=== PATIENT | female | born 1945 | race Caucasian/White ===

== ENCOUNTER → 2018-04-28 | Outpatient (CLI) | payer MEDICARE ==
--- NOTE | 2018-04-28 18:23 | US ---
EXAMINATION TYPE: US abdomen complete DATE OF EXAM: 04/28/2018 COMPARISON: NONE CLINICAL HISTORY: R10.11 right upper quadrant pain. EXAM MEASUREMENTS: Liver Length: 12.0 cm Gallbladder Wall: 0.2 cm CBD: 0.3 cm Spleen: 9.6 cm Right Kidney: 12.0 x 4.6 x 4.3 cm Left Kidney: 9.7 x 4.7 x 4.5 cm Patient of large body habitus, technically difficult and somewhat limited study. Pancreas: partially obscured by bowel gas, portions visualized wnl Liver: Increased attenuation Gallbladder: wnl Evidence for sonographic Medina's sign: no CBD: wnl Spleen: wnl Right Kidney: cyst seen measuring 1.3 x 1.2 x 1.2cm, measures large than left Left Kidney: Inferior pole obscured by bowel gas Upper IVC: wnl Abd Aorta: bifurcation obscured by bowel gas, otherwise wnl IMPRESSION: No significant abnormality. Simple small right renal cortical cyst.
== END | disposition home or self-care (01) ==
LOC: RADUSMAIN 17:08
PROVIDERS: ATTEND Internal Medicine
DX: N28.1 Cyst of kidney, acquired (principal)
CPT/HCPCS: 76700

== ENCOUNTER → 2018-05-22 | Outpatient (CLI) | payer MEDICARE ==
--- NOTE | 2018-05-23 11:43 | CT ---
EXAMINATION TYPE: CT abdomen w con DATE OF EXAM: 05/22/2018 HISTORY: RUQ and flank pain CT DLP: 1338mGycm Automated Exposure Control for Dose Reduction was Utilized. CONTRAST: CT scan of the abdomen is performed with IV Contrast, patient injected with 80 mL of Isovue 300. COMPARISON: Complete abdominal ultrasound April 28, 2018 FINDINGS: LUNG BASES: Dependent atelectasis in both bases is present. There is additional patchy bibasilar line ar scarring and/or atelectasis seen. LIVER/GB: No intraluminal CT dense gallstones or surrounding inflammatory change around gallbladder i s identified. PANCREAS: No significant abnormality is seen. SPLEEN: No significant abnormality is seen. ADRENALS: No significant abnormality is seen. KIDNEYS: Anteriorly upper pole level right kidney there is 1.3 cm rounded low dense lesion felt to re flect simple cysts seen best delayed axial series 7 image 32. This correlates with recent ultrasound. Symmetric cortical medullary uptake and excretion from both kidneys is seen without hydronephrosis i dentified bilaterally. BOWEL: The oral contrast only reaches proximal ileal level in the lower abdomen making evaluation of distal bowel suboptimal. There is no suspicious small or large bowel dilatation. Mild wall thickening transverse and left colon is presumed product of poor distention. LYMPH NODES: No greater than 1cm abdominal lymph nodes are appreciated. OSSEOUS STRUCTURES: Mild to moderate multilevel spurring in the thoracolumbar spine is present. There is facet arthropathy in the lower lumbar levels seen. OTHER: There is mild vascular calcification of aorta extending into branch vessels. IMPRESSION: No significant acute finding is seen to account for patient's clinical symptoms of right upper quadrant and flank pain.
== END | disposition home or self-care (01) ==
LOC: RADCTMAIN 14:57
PROVIDERS: ATTEND Internal Medicine
DX: R10.11 Right upper quadrant pain (principal)
CPT/HCPCS: 82565; 84520; 74160; 36415; Q9967

== ENCOUNTER → 2018-10-04 | Outpatient (CLI) | payer MEDICARE ==
--- NOTE | 2018-10-04 08:51 | US ---
EXAMINATION TYPE: US extremity nonvasc complt RT DATE OF EXAM: 10/04/2018 COMPARISON: NONE CLINICAL HISTORY: R22.31 mass and lump. Right arm lump x couple months TECHNIQUE/FINDINGS: Targeted ultrasound was performed with grayscale and color vascular flow in the p atient's stated area of palpable abnormality in the antecubital fossa. Within the right arm at the an tecubital fossa, at patient's area of concern no abnormality is seen seen at this time. There is no s olid or cystic mass. No edema is noted. Flow is seen within the visualized vasculature. IMPRESSION: No sonographic correlate to the patient's stated palpable abnormality.
== END | disposition home or self-care (01) ==
LOC: RADUSWWP 07:11
PROVIDERS: ATTEND Internal Medicine
DX: R22.31 Localized swelling, mass and lump, right upper limb (principal)

== ENCOUNTER → 2019-04-09 | Outpatient (CLI) | payer MEDICARE ==
--- NOTE | 2019-04-09 08:50 | CT ---
EXAMINATION TYPE: CT abdomen pelvis wo con DATE OF EXAM: 04/09/2019 COMPARISON: CT abdomen 05/22/2018 HISTORY: Pelvic pain/cramping, vaginal bleeding. Post menopause CT DLP: 1054 mGycm Examination of the solid and hollow viscera is limited given the lack of contrast. FINDINGS: LUNG BASES: No evidence for nodule. No evidence for infiltrate. LIVER/GB: The gallbladder is unremarkable. No space-occupying hepatic lesion. PANCREAS: No pancreatic mass identified. No inflammatory process seen. SPLEEN: No evidence for splenomegaly. No intrasplenic lesions seen. ADRENALS: No adrenal nodules identified. No evidence for thickening. KIDNEYS: 1.6 cm hypoattenuating lesion right kidney may reflect atelectasis. No nephrolithiasis. No h ydronephrosis. BOWEL: Appendix has a normal appearance. No evidence of bowel obstruction. No inflammatory process. Lymph nodes: No evidence for adenopathy greater than 1 cm. Abdominal aorta: Atheromatous changes seen. No evidence for aneurysm. Genital organs: The uterus is enlarged and heterogenous and measures approximately 14 x 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 Direct visualization and tissue diagnosis is recomme nded. No ovarian or adnexal mass appreciated. Other: No significant abnormality. IMPRESSION: 1.The uterus is enlarged and heterogenous and measures approximately 14 x 9 cm. 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 Direct visualization and tissue diagnosis is recommended. A Document Only message has been documented for Mayank Truong MD in the [employer] system on 04/09/2019 8:47 AM, Message ID [id number].
--- NOTE | 2019-04-09 10:05 | US ---
EXAMINATION TYPE: US pelvis complete transvag DATE OF EXAM: 04/09/2019 COMPARISON: NONE CLINICAL HISTORY: N93.9 Abnormal uterine and vaginal bleeding. Postmenopausal bleeding TECHNIQUE: Transvaginal (TV) and Transabdominal (TA) . Transabdominal sonographic images of the pel vis were acquired. Transvaginal sonographic images were medically necessary to better assess the fol lowing anatomy: Uterus and ovaries. EXAM MEASUREMENTS: Uterus: 14.1 x 7.3 x 11.2 cm Endometrial Stripe: 4.1 cm 1. Uterus: Enlarged heterogenous Multiple probable leiomyomas seen largest 4.9 x 3.2 x 4.2cm. 2. Endometrium: Enlarged 3. Right Ovary: Obscured by overlying bowel gas 4. Left Ovary: Obscured by overlying bowel gas 5. Bilateral Adnexa: wnl 6. Posterior cul-de-sac: wnl IMPRESSION: 1. Endometrium is partially obscured by multiple probable leiomyomas. The endometrium appears grossly thickened measuring approximately 4.1 cm. This is markedly abnormal and could represent endometrial hyperplasia, endometrial mass or endometrial polyp. Further evaluation with sonohysterogram or direct visualization is recommended. 2. Obscuration of the bilateral ovaries by overlying bowel gas.
== END | disposition home or self-care (01) ==
LOC: RADUSWWP 07:22
PROVIDERS: ATTEND Internal Medicine
DX: N85.2 Hypertrophy of uterus (principal); R93.89 Abnormal findings on diagnostic imaging of other specified body structures
CPT/HCPCS: 74176; 76830; 76856

== ENCOUNTER → 2019-10-08 | Outpatient (CLI) | payer MEDICARE ==
--- NOTE | 2019-10-11 11:20 | MM ---
Reason for exam: screening (asymptomatic). Last mammogram was performed 1 year and 2 months ago. History: Patient is postmenopausal, history of other cancer, and is nulliparous. Physical Findings: A clinical breast exam by your physician is recommended on an annual basis and results should be correlated with mammographic findings. MG 3D Screening Mammo W/Cad Bilateral CC and MLO view(s) were taken. Prior study comparison: August 10, 2018, mammogram, performed at . May 02, 2018, mammogram, performed at . There are scattered fibroglandular densities. There are benign appearing round calcifications bilaterally. There is no discrete abnormality. ASSESSMENT: Benign, BI-RAD 2 RECOMMENDATION: Routine screening mammogram of both breasts in 1 year.
== END | disposition home or self-care (01) ==
LOC: RADMAMWWP 08:00
PROVIDERS: ATTEND Family Medicine
DX: Z12.31 Encounter for screening mammogram for malignant neoplasm of breast (principal)
CPT/HCPCS: 77063; 77067

== ENCOUNTER → 2021-03-06 | Outpatient (CLI) | payer MEDICARE ==
--- NOTE | 2021-03-09 07:00 | PE ---
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 Images are reviewed on the computer in the coronal, a xial, and sagittal planes. Reconstructed rotating images are created on independent workstation and reviewed on the computer. A localization and attenuation correction CT is performed in conjunction with the PET scan. Blood glucose level equals 97. SCAN: Subsequent Scan FINDINGS: SKULL BASE AND NECK: No areas of abnormal hypermetabolic uptake. CHEST, MEDIASTINUM, AND HILAR REGION: No areas of abnormal hypermetabolic uptake. ABDOMEN AND PELVIS: Uterus is surgically absent. Normal excretion. No areas of abnormal hypermetaboli c uptake. OSSEOUS STRUCTURES: No abnormal hypermetabolic uptake. OTHER CT: Cardiomegaly is present. There is some calcification at the level of the mitral and aortic valves. Mild calcified plaque of the aorta extends into branch vessels. Sigmoid colonic diverticula. Uterus s urgically absent. IMPRESSION: Posthysterectomy changes. No suspicious hypermetabolic uptake to suggest recurrent malign everton.
== END | disposition home or self-care (01) ==
LOC: RADPETMAIN 09:32
PROVIDERS: ATTEND Obstetrics & Gynecology
DX: C55 Malignant neoplasm of uterus, part unspecified (principal); Z90.710 Acquired absence of both cervix and uterus
CPT/HCPCS: 78815; A9552

== ENCOUNTER → 2021-03-06 | Outpatient (CLI) | payer MEDICARE ==
--- NOTE | 2021-03-11 09:03 | MM ---
Reason for exam: screening (asymptomatic). Last mammogram was performed 1 year and 5 months ago. History: Patient is postmenopausal, history of other cancer, and is nulliparous. Physical Findings: A clinical breast exam by your physician is recommended on an annual basis and results should be correlated with mammographic findings. MG 3D Screening Mammo W/Cad Bilateral CC and MLO view(s) were taken. Prior study comparison: October 08, 2019, bilateral MG 3d screening mammo w/cad. May 02, 2018, mammogram, performed at [facility]. There are scattered fibroglandular densities. No significant changes when compared with prior studies. ASSESSMENT: Negative, BI-RAD 1 RECOMMENDATION: Routine screening mammogram of both breasts in 1 year.
== END | disposition home or self-care (01) ==
LOC: RADMAMWWP 12:51
PROVIDERS: ATTEND Obstetrics & Gynecology
DX: Z12.31 Encounter for screening mammogram for malignant neoplasm of breast (principal); Z78.0 Asymptomatic menopausal state
CPT/HCPCS: 77063; 77067

== ENCOUNTER → 2021-05-15 | Outpatient (CLI) | payer MEDICARE ==
--- NOTE | 2021-05-15 14:57 | MR ---
EXAMINATION TYPE: MR brain wo con DATE OF EXAM: 05/15/2021 COMPARISON: NONE HISTORY: Left-sided weakness. History of TIA. History of uterine cancer. TECHNIQUE: Multiplanar, multisequence imaging of the brain and brainstem is performed without IV cont rast. FINDINGS: Diffusion weighted images demonstrate a few scattered focal rounded and linear areas of increased sig nal on diffusion-weighted images with diminished signal on ADC mapping in the right brain parenchyma involving frontal and parietal lobes with areas of subcortical involvement. Some areas of T2 hyperint ensity are clearly seen. Findings consistent with evolving acute infarcts. There is mild to moderate ventricular and sulcal prominence as well as sulcal prominence greatest ove r the bilateral frontal lobes. There are scattered areas of T2 hyperintensity throughout the white ma tter bilaterally. There is old infarct in the right frontal lobe near axial image 22 noted. T2 Star w eighted images show some residual hemorrhage or old hemorrhagic infarct at this level. Midline structures demonstrate normal morphology. The craniocervical junction appears within normal limits. Normal vascular flow voids are present. Dominant right vertebral artery is incidentally noted . The visualized sinuses are clear and the globes are intact. IMPRESSION: 1. 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 2. Background [id number] diffuse cerebral atrophy greatest over bilateral frontal lobes and chr onic small vessel ischemic change with old right frontal lobe infarct are all noted.
== END | disposition home or self-care (01) ==
LOC: RADMRIMAIN 13:37
PROVIDERS: ATTEND Physician Assistant
DX: G45.9 Transient cerebral ischemic attack, unspecified (principal); G31.9 Degenerative disease of nervous system, unspecified
CPT/HCPCS: 70551

== ENCOUNTER → 2021-05-15 | Outpatient (CLI) | payer MEDICARE ==
--- NOTE | 2021-05-15 13:24 | US ---
EXAMINATION TYPE: US carotid duplex BILAT DATE OF EXAM: 05/15/2021 COMPARISON: PET CT January 04, 2021 CLINICAL HISTORY: G45.9 Transient cerebral ischemic attack. Left hand tingling with slurred speech ep isode lasting less than 24 hours. EXAM MEASUREMENTS: RIGHT: Peak Systolic Velocity (PSV) cm/sec ----- Right CCA: 91.7 ----- Right ICA: 86.7 ----- Right ECA: 105.6 ICA/CCA ratio: 0.9 RIGHT: End Diastole cm/sec ----- Right CCA: 24.8 ----- Right ICA: 22.2 ----- Right ECA: 13.4 LEFT: Peak Systolic Velocity (PSV) cm/sec ----- Left CCA: 76.5 ----- Left ICA: 74.0 ----- Left ECA: 87.9 ICA/CCA ratio: 1.0 LEFT: End Diastole cm/sec ----- Left CCA: 21.0 ----- Left ICA: 21.0 ----- Left ECA: 14.7 VERTEBRALS (direction of flow): Right Vertebral: Antegrade Left Vertebral: Antegrade Rhythm: Normal Mild intimal wall thickening is noted at bilateral carotid bifurcation and PSV is wnl bilaterally. Incidental finding bilateral thyroid: Heterogeneous thyroid with multiple small scattered nodules inc identally noted. IMPRESSION: No hemodynamically significant stenosis in either internal carotid artery. Criteria for Assigning % of Stenosis / Diameter reduction (Estimation based on the indirect measurements of the internal carotid artery velocities (ICA PSV). 1. Normal (no stenosis)=ICA PSV < 125 cm/s: ratio < 2.0: ICA EDV<40 cm/s. 2. Less than 50% stenosis=ICA PSV < 125 cm/s: ratio < 2.0: ICA EDV<40 cm/s. 3. 50 to 69% stenosis=ICA PSV of 125 to 230 cm/s: ration 2.0 ? 4.0: ICA EDV 40-100 cm/s. 4. Greater than 70% stenosis to near occlusion= ICA PSV > 230 cm/s: ratio > 4.0: ICA EDV > 100 cm/s. 5. Near occlusion= ICA PSV velocities may be low or undetectable: variable ratio and ICA EDV. 6. Total occlusion=unable to detect flow.
== END | disposition home or self-care (01) ==
LOC: RADUSWWP 12:34
PROVIDERS: ATTEND Family Medicine
DX: G45.9 Transient cerebral ischemic attack, unspecified (principal)
CPT/HCPCS: 93880

== ENCOUNTER → 2021-07-24 | Outpatient (CLI) | payer MEDICARE ==
--- NOTE | 2021-07-24 15:46 | US ---
EXAMINATION TYPE: US thyroid st tissue head/neck DATE OF EXAM: 07/24/2021 COMPARISON: NONE CLINICAL HISTORY: E04.1 THYROID NODULE. Nodule GLAND SIZE: Right Lobe: 4.2 x 1.8 x 1.5 cm Overall Parenchyma: heterogenous Left Lobe: 4.3 x 2.0 x 1.4 cm Overall Parenchyma: heterogeneous Isthmus Thickness: 0.42 cm NODULES RIGHT: # of nodules measured on right: 0 LEFT: # of nodules measured on left: 1 1. 0.6 X 0.6 x 0.7 cm, lower lateral, cystic or almost completely cystic, anechoic nodule, which is wider than tall, with smooth margins, with echogenic foci. GRII ISTHMUS: # of nodules measured in the isthmus: 0 Bilateral neck scanned, no evidence of lymphadenopathy. IMPRESSION: 1. No suspicious ultrasound abnormality. 2017 ACR TI-RADS LEVEL: TR-RADS 2 - Not Suspicious: No FNA *Highest TI-RADS level nodule reported
== END | disposition home or self-care (01) ==
LOC: RADUSWWP 15:11
PROVIDERS: ATTEND Family Medicine
DX: E04.1 Nontoxic single thyroid nodule (principal)
CPT/HCPCS: 76536

== ENCOUNTER 2021-10-06 08:36 | Day surgery (SDC) | payer MEDICARE ==
[2021-10-05 08:42] VITALS: BMI 36.8
[~2021-10-06 08:36] MED LIST: LACTATED RINGERS 1,000 ML IV SCH; LIDOCAINE 1% (10MG/ML) FOR IV START INTRADERMA PRN
[2021-10-06 09:28] VITALS: TEMP 97.2
[2021-10-06] MEDS ORDERED: PROPOFOL 10 MG/ML 20 ML VIAL IV ONE (10:10)
--- NOTE | 2021-10-06 10:25 | P.PCN ---
Date of Procedure: 10/06/21 Procedure(s) Performed: BRIEF HISTORY: Patient is a 75-year-old pleasant female scheduled for an elective colonoscopy as a part of evaluation of positive:cologuard. He has prior history of colon polyps. PROCEDURE PERFORMED: Colonoscopy. PREOPERATIVE DIAGNOSIS: Positive cologuard. IV sedation per Anesthesia. PROCEDURE: After informed consent was obtained, the patient, was brought into the endoscopy unit. IV sedation was administered by Anesthesia under continuous monitoring. Digital rectal examination was normal. Initially the Olympus CF-160 flexible video colonoscope was then inserted in the rectum, gradually advanced into the cecum without any difficulty. Careful examination was performed as the scope was gradually being withdrawn. Ileocecal valve and the appendiceal orifice were visualized and appeared normal. Prep was excellent. Mucosa of the cecum, ascending colon, transverse colon, descending colon, sigmoid colon, and rectum appeared normal. Scattered sigmoid diverticulosis seen. Retroflexion was performed in the rectum and no lesions were seen. The patient tolerated the pro cedure well. IMPRESSION: Normal-appearing colon from rectum to cecum with no evidence of colorectal neoplasia . Scattered sigmoid diverticulosis. RECOMMENDATIONS: Findings of this examination were discussed with the patient as well as a family. She was advised to have a repeat screening colonoscopy in 10 years or earlier if she has any symptoms.
[2021-10-06 10:31] VITALS: RESP 16
[2021-10-06 10:45] VITALS: BP 111/68; PULSE 87
== END 2021-10-06 11:04 | disposition home or self-care (01) ==
LOC: ORWHC2ENDO 08:36
PROVIDERS: ATTEND Internal Medicine Gastroenterology
DX: K57.30 Diverticulosis of large intestine without perforation or abscess without bleeding (principal)
CPT/HCPCS: 45378; J2704

== ENCOUNTER → 2022-01-15 | Outpatient (CLI) | payer MEDICARE ==
--- NOTE | 2022-01-17 22:21 | PE ---
EXAMINATION TYPE: PET CT fusion skull to thigh DATE OF EXAM: 01/15/2022 CLINICAL INDICATION:Female, 76 years old with history of Z85.42 Personal history of malignant neoplas m of; TECHNIQUE: Following the intravenous administration of 13.5 mCi of F-18 FDG, whole body images are performed from the skull base to the midthigh. Images are reviewed on the computer in the coronal, a xial, and sagittal planes. Reconstructed rotating images are created on independent workstation and reviewed on the computer. A non-contrast CT is performed in conjunction with the PET scan. Glucose level 79 mg/dL COMPARISON: CT 04/09/2019, PET/CT 03/06/2021, FINDINGS: Mediastinal SUV mean is 2.0. Hepatic parenchyma SUV mean is 2.9. SKULL BASE AND NECK: No suspicious FDG activity. CHEST, MEDIASTINUM, AND HILAR REGION: No suspicious FDG activity. ABDOMEN AND PELVIS: No suspicious FDG activity. OSSEOUS STRUCTURES: No suspicious FDG activity. OTHER CT: Coronary artery atherosclerosis. The heart is mildly enlarged for size. Streaky atelectasis seen throughout the lungs. Atherosclerosis of the arterial vasculature. Few scattered clonic diverti cula. IMPRESSION: No suspicious FDG activity to suggest metastatic disease.
== END | disposition home or self-care (01) ==
LOC: RADPETMAIN 10:48
PROVIDERS: ATTEND Obstetrics & Gynecology
DX: Z08 Encounter for follow-up examination after completed treatment for malignant neoplasm (principal); Z85.42 Personal history of malignant neoplasm of other parts of uterus; Z90.79 Acquired absence of other genital organ(s)
CPT/HCPCS: 78815; A9552

== ENCOUNTER → 2022-03-08 | Outpatient (CLI) | payer MEDICARE ==
--- NOTE | 2022-03-09 08:36 | MM ---
Reason for Exam: Screening (asymptomatic). Last screening mammogram was performed 12 month(s) ago. Patient History: Menarche at age 15. Patient has no children. Left ovary removed at age 73. Right ovary removed at age 73. Hysterectomy at age 73. Postmenopausal. Other cancer. Risk Values: Pilar 5 year model risk: 2.0%. NCI Lifetime model risk: 4.5%. Prior Study Comparison: 08/10/2018 Screening Mammogram, [facility]. 10/08/2019 Bilateral Screening Mammogram, [facility]. 03/06/2021 Bilateral Screening Mammogram, [facility]. Tissue Density: There are scattered fibroglandular densities. Findings: Analyzed By CAD. There is no suspicious new group of microcalcifications or new suspicious mass in either breast. Overall Assessment: Negative, BI-RAD 1 Management: Screening Mammogram of both breasts in 1 year. A clinical breast exam by your physician is recommended on an annual basis and results should be correlated with mammographic findings. Electronically signed and approved by: Melchor Hanson M.D.
== END | disposition home or self-care (01) ==
LOC: RADMAMWWP 08:46
PROVIDERS: ATTEND Radiology Radiation Oncology
DX: Z12.31 Encounter for screening mammogram for malignant neoplasm of breast (principal)
CPT/HCPCS: 77063; 77067

== ENCOUNTER → 2022-08-05 | Outpatient (CLI) | payer MEDICARE ==
--- NOTE | 2022-08-06 07:27 | US ---
EXAMINATION TYPE: US thyroid st tissue head/neck DATE OF EXAM: 08/05/2022 COMPARISON: 07/24/2021 CLINICAL HISTORY: E04.1 SINGLE THYROID NODULE. Thyroid nodule GLAND SIZE: Right Lobe: 3.9 x 1.8 x 1.6 cm Overall Parenchyma: heterogenous Left Lobe: 4.7 x 1.7 x 1.5 cm Overall Parenchyma: heterogeneous Isthmus Thickness: 0.4 cm NODULES RIGHT: # of nodules measured on right: 1 1. 0.7 X 0.6 x 0.7 cm, lower TIRADS Score: 4 TIRADS Category 4: Moderately Suspicious Composition: Solid or almost completely solid (2 points). Echogenicity: Hypoechoic (2 points). Shape: Wider than tall (0 points). Margin: Smooth (0 points). Echogenic foci: None or large comet-tail artifacts (0 points) Recommendation: If >1.5cm: FNA; If >1cm: Follow up at 1,2, 3,5 years LEFT: # of nodules measured on left: 1 1. 0.7 X 0.7 x 0.7 cm, lower , Prior size: 0.6 x 0.6 x 0.7 cm TIRADS Score: 0 TIRADS Category 1: Benign Composition: Cystic or almost completely cystic (0 points). Recommendation: No FNA ISTHMUS: # of nodules measured in the isthmus: 0 Bilateral neck scanned, no evidence of lymphadenopathy. IMPRESSION: No suspicious thyroid nodules. Subcentimeter right thyroid nodule which does not meet criteria for fo llow-up or biopsy.
== END | disposition home or self-care (01) ==
LOC: RADUSWWP 14:37
PROVIDERS: ATTEND Family Medicine
DX: E04.1 Nontoxic single thyroid nodule (principal)
CPT/HCPCS: 76536

== ENCOUNTER → 2023-04-06 | Outpatient (CLI) | payer MEDICARE ==
--- NOTE | 2023-04-07 08:30 | MM ---
Reason for Exam: Screening (asymptomatic). Last mammogram was performed 1 year(s) and 1 month(s) ago. Patient History: Menarche at age 15. Patient has no children. Left ovary removed at age 73. Right ovary removed at age 73. Hysterectomy at age 73. Postmenopausal. Other cancer. Risk Values: Pilar 5 year model risk: 2.0%. NCI Lifetime model risk: 4.2%. Prior Study Comparison: 10/08/2019 Bilateral Screening Mammogram, [facility]. 03/06/2021 Bilateral Screening Mammogram, [facility]. 03/08/2022 Bilateral MG 3D screening mammo w/cad, [facility]. Tissue Density: There are scattered fibroglandular densities. Findings: Analyzed By CAD. There is no suspicious group of microcalcifications or new suspicious mass in either breast. Overall Assessment: Negative, BI-RAD 1 Management: Screening Mammogram of both breasts in 1 year. . Patient should continue monthly self-breast exams. A clinical breast exam by your physician is recommended on an annual basis. This exam should not preclude additional follow-up of suspicious palpable abnormalities. Note on Pilar scores and lifetime risk: 1. A Pilar score greater than 3% is considered moderate risk. If this is the case, consider specialist referral to assess eligibility for a risk reducing agent. 2. If overall lifetime risk for the development of breast cancer is 20% or higher, the patient may qualify for future screening with alternating mammogram and breast MRI. Electronically signed and approved by: Sesar Balderas M.D. Radiologis
== END | disposition home or self-care (01) ==
LOC: RADMAMWWP 13:57
PROVIDERS: ATTEND Obstetrics & Gynecology
DX: Z12.31 Encounter for screening mammogram for malignant neoplasm of breast (principal); Z90.79 Acquired absence of other genital organ(s); Z85.42 Personal history of malignant neoplasm of other parts of uterus; Z78.0 Asymptomatic menopausal state
CPT/HCPCS: 77063; 77067

== ENCOUNTER 2023-04-20 14:32 | Emergency (ER) | payer MEDICARE ==
[2023-04-20 15:09] VITALS: BP 174/120; PULSE 92; RESP 18
[2023-04-20 15:32] LABS: Basophils % (A) 0 %; Eosinophils # (A) 0.1 k/uL (0-0.7); Eosinophils % (A) 2 %; HCT 41.5 % (34.0-46.0); HGB 14.2 gm/dL (11.4-16.0); Lymphocytes # (A) 1.1 k/uL (1.0-4.8); Lymphocytes % (A) 16 %; MCH 32.3 pg (25.0-35.0); MCHC 34.2 g/dL (31.0-37.0); MCV 94.3 fL (80.0-100.0); Mean Platelet Volume 8.1; Monocytes # (A) 0.4 k/uL (0-1.0); Monocytes % (A) 6 %; Neutrophils % (A) 74 %; Platelet Count 177 k/uL (150-450); RDW 12.4 % (11.5-15.5); WBC 6.7 k/uL (3.8-10.6)
--- NOTE | 2023-04-20 15:32 | ED ---
Arrhythmia/Palpitations HPI - General Chief Complaint: Arrhythmia/Palpitations Stated Complaint: Abn EKG,AFIB Source: patient Mode of arrival: ambulatory Limitations: no limitations - History of Present Illness Initial Comments: 77-year-old female presenting to the ED with a chief complaint of abnormal EKG. Patient states that she presented to her PCPs office to have her blood pressure evaluated. There, she noted some left shoulder pain. Due to this, had an EKG performed that showed A. fib. Patient has no known history of A. fib and was therefore sent to the ED for further evaluation. Patient states that the pain in her shoulder feels like it radiates to her chest. Currently denies palpitations. Patient follows with Dr. Lopez. - Related Data Home Medications Medication Instructions Recorded Confirmed Aspirin [Adult Low Dose Aspirin EC] 81 mg PO HS 10/05/21 10/06/21 Atorvastatin Calcium [Lipitor] 10 mg PO HS 10/05/21 10/06/21 Cholecalciferol [Vitamin D3 (25 25 mcg PO DAILY 10/05/21 10/06/21 Mcg = 1000 Iu)] Losartan [Cozaar] 25 mg PO HS 10/05/21 10/06/21 Magnesium 250 mg PO HS 10/05/21 10/06/21 Metoprolol Succinate (ER) [Toprol 50 mg PO HS 10/05/21 10/06/21 Xl] Allergies Allergy/AdvReac Type Severity Reaction Status Date / Time Iodinated Contrast Media AdvReac Rash/Hives Verified 04/20/23 14:48 Review of Systems ROS Statement: Those systems with pertinent positive or pertinent negative responses have been documented in the HPI. ROS Other: All systems not noted in ROS Statement are negative. Past Medical History Past Medical History: Atrial Fibrillation, CVA/TIA, Hypertension Additional Past Medical History / Comment(s): CVA 2021 History of Any Multi-Drug Resistant Organisms: None Reported Past Surgical History: Hysterectomy Additional Past Surgical History / Comment(s): bladder repair. Past Psychological History: No Psychological Hx Reported Smoking Status: Never smoker Past Alcohol Use History: None Reported Past Drug Use History: None Reported General Exam - General Exam Comments Initial Comments: Visual Physical Exam Vital signs reviewed General: Well-appearing, nontoxic, no acute distress. Head: Normocephalic, atraumatic Eyes: PERRLA, EOMI ENT: Airway patent Chest: Nonlabored breathing Skin: No visual rash, normal skin tone Neuro: Alert and oriented 3 Musculoskeletal: No gross abnormalities Limitations: no limitations Course Vital Signs 04/20/23 14:43 Pulse Rate 92 Respiratory 18 Rate Blood Pressure 174/120 O2 Sat by Pulse 98 Oximetry Medical Decision Making - Medical Decision Making Quicknote portion performed. Signed Manuel Tristan PA-C Quick note portion was performed. Patient left AGAINST MEDICAL ADVICE before completing formal medical evaluation. - Lab Data Result diagrams: 04/20/23 14:50 04/20/23 14:50 Lab Results 04/20/23 04/20/23 04/20/23 Range/Units 14:50 14:50 14:50 WBC 6.7 (3.8-10.6) k/uL RBC 4.40 (3.80-5.40) m/uL Hgb 14.2 (11.4-16.0) gm/dL Hct 41.5 (34.0-46.0) % MCV 94.3 (80.0-100.0) fL MCH 32.3 (25.0-35.0) pg MCHC 34.2 (31.0-37.0) g/dL RDW 12.4 (11.5-15.5) % Plt Count 177 (150-450) k/uL MPV 8.1 Neutrophils % 74 % Lymphocytes % 16 % Monocytes % 6 % Eosinophils % 2 % Basophils % 0 % Neutrophils # 5.0 (1.3-7.7) k/uL Lymphocytes # 1.1 (1.0-4.8) k/uL Monocytes # 0.4 (0-1.0) k/uL Eosinophils # 0.1 (0-0.7) k/uL Basophils # 0.0 (0-0.2) k/uL PT (10.0-12.5) sec INR (<1.2) APTT (22.0-30.0) sec Sodium 140 (137-145) mmol/L Potassium 5.0 (3.5-5.1) mmol/L Chloride 104 (98-107) mmol/L Carbon Dioxide 25 (22-30) mmol/L Anion Gap 11 mmol/L BUN 18 H (7-17) mg/dL Creatinine 0.87 (0.52-1.04) mg/dL Est GFR (CKD-EPI)AfAm 76 (>60 ml/min/1.73 sqM) Est GFR (CKD-EPI)NonAf 66 (>60 ml/min/1.73 sqM) Glucose 97 (74-99) mg/dL Calcium 9.7 (8.4-10.2) mg/dL Magnesium 2.1 (1.6-2.3) mg/dL Total Bilirubin 0.9 (0.2-1.3) mg/dL AST 34 (14-36) U/L ALT 24 (4-34) U/L Alkaline Phosphatase 112 (38-126) U/L Troponin I <0.012 (0.000-0.034) ng/mL Total Protein 7.3 (6.3-8.2) g/dL Albumin 4.4 (3.5-5.0) g/dL 04/20/23 Range/Units 16:50 WBC (3.8-10.6) k/uL RBC (3.80-5.40) m/uL Hgb (11.4-16.0) gm/dL Hct (34.0-46.0) % MCV (80.0-100.0) fL MCH (25.0-35.0) pg MCHC (31.0-37.0) g/dL RDW (11.5-15.5) % Plt Count (150-450) k/uL MPV Neutrophils % % Lymphocytes % % Monocytes % % Eosinophils % % Basophils % % Neutrophils # (1.3-7.7) k/uL Lymphocytes # (1.0-4.8) k/uL Monocytes # (0-1.0) k/uL Eosinophils # (0-0.7) k/uL Basophils # (0-0.2) k/uL PT 10.4 (10.0-12.5) sec INR 0.9 (<1.2) APTT 22.4 (22.0-30.0) sec Sodium (137-145) mmol/L Potassium (3.5-5.1) mmol/L Chloride (98-107) mmol/L Carbon Dioxide (22-30) mmol/L Anion Gap mmol/L BUN (7-17) mg/dL Creatinine (0.52-1.04) mg/dL Est GFR (CKD-EPI)AfAm (>60 ml/min/1.73 sqM) Est GFR (CKD-EPI)NonAf (>60 ml/min/1.73 sqM) Glucose (74-99) mg/dL Calcium (8.4-10.2) mg/dL Magnesium (1.6-2.3) mg/dL Total Bilirubin (0.2-1.3) mg/dL AST (14-36) U/L ALT (4-34) U/L Alkaline Phosphatase (38-126) U/L Troponin I (0.000-0.034) ng/mL Total Protein (6.3-8.2) g/dL Albumin (3.5-5.0) g/dL Disposition Clinical Impression: Palpitations Disposition: LEFT AGAINST MEDICAL ADVICE Referrals: Jose Cruz Miller MD [Primary Care Provider] - 1-2 days
[2023-04-20 15:49] LABS: ALT 24 U/L (4-34); African American GFR (CKD) 76 (>60 ml/min/1.73 sqM); Albumin 4.4 g/dL (3.5-5.0); Anion Gap 11 mmol/L; Blood Urea Nitrogen 18 mg/dL (7-17); Calcium 9.7 mg/dL (8.4-10.2); Carbon Dioxide 25 mmol/L (22-30); Chloride 104 mmol/L (98-107); Glucose 97 mg/dL (74-99); Non-African American GFR(CKD) 66 (>60 ml/min/1.73 sqM); Sodium 140 mmol/L (137-145); Total Bilirubin 0.9 mg/dL (0.2-1.3); Total Protein 7.3 g/dL (6.3-8.2)
[2023-04-20 16:00] LABS: AST 34 U/L (14-36)
[2023-04-20 16:01] LABS: Alkaline Phosphatase 112 U/L (38-126); Magnesium 2.1 mg/dL (1.6-2.3)
--- NOTE | 2023-04-20 16:28 | XR ---
EXAMINATION TYPE: XR chest 2V DATE OF EXAM: 04/20/2023 3:40 PM CLINICAL INDICATION:Female, 77 years old with history of dysrhythmia; PHH COMPARISON: None TECHNIQUE: XR chest 2V Frontal and lateral views of the chest. FINDINGS: Lungs/Pleura: There is no evidence of pleural effusion, focal consolidation, or pneumothorax. Pulmonary vascularity: Unremarkable. Heart/mediastinum: Cardiomediastinal silhouette is unremarkable. Musculoskeletal: No acute osseous pathology. IMPRESSION: No acute cardiopulmonary disease/process.
[2023-04-20 17:18] LABS: INR 0.9 (<1.2); Partial Thromboplastin Time 22.4 sec (22.0-30.0); Prothrombin Time 10.4 sec (10.0-12.5)
== END 2023-04-20 20:28 | disposition left against medical advice (07) ==
LOC: EC 14:32
DX: R00.2 Palpitations (principal); I48.91 Unspecified atrial fibrillation; I10 Essential (primary) hypertension; Z79.82 Long term (current) use of aspirin; Z79.899 Other long term (current) drug therapy; Z91.041 Radiographic dye allergy status; Z53.29 Procedure and treatment not carried out because of patient's decision for other reasons
CPT/HCPCS: 36415; 71046; 80053; 83735; 84484; 85025; 85610; 85730; 93005; 99284

== ENCOUNTER → 2023-07-06 | Outpatient (CLI) | payer MEDICARE ==
--- NOTE | 2023-07-06 14:26 | CT ---
EXAMINATION TYPE: CT ChestAbdPelvis wo con DATE OF EXAM: 07/06/2023 COMPARISON: PET/CT on 01/15/2022. HISTORY: f/u uterine ca CT DLP: 889.4 mGycm. Automated Exposure Control for Dose Reduction was Utilized. TECHNIQUE: CT scan of the thorax, abdomen and pelvis is performed without IV contrast. FINDINGS: LUNGS: There are a few bands of opacity seen throughout the lungs bilaterally which are likely atelec tasis or scarring. There are no significant pulmonary nodules. No focal area of consolidation is seen . MEDIASTINUM: There are no greater than 1 cm hilar or mediastinal lymph nodes. No pericardial effusi on is seen. Moderate cardiomegaly. OTHER: No additional significant abnormality is seen. LIVER/GB: No significant abnormality is appreciated. PANCREAS: No significant abnormality is seen. SPLEEN: No significant abnormality is seen. ADRENALS: No significant abnormality is seen. KIDNEYS: Unchanged right renal cyst. The kidneys otherwise appear unremarkable. BOWEL: There is mild sigmoid colonic diverticulosis without evidence of diverticulitis. GENITAL ORGANS: No gross abnormality seen. LYMPH NODES: No greater than 1cm abdominal or pelvic lymph nodes are appreciated. OSSEOUS STRUCTURES: No significant abnormality is seen. OTHER: No significant additional abnormality is seen. IMPRESSION: 1. No definitive evidence of metastatic disease within the chest, abdomen or pelvis. 2. Additional incidental and chronic changes noted above.
== END | disposition home or self-care (01) ==
LOC: RADCTMAIN 13:12
PROVIDERS: ATTEND Obstetrics & Gynecology
DX: Z08 Encounter for follow-up examination after completed treatment for malignant neoplasm (principal); N28.1 Cyst of kidney, acquired; K57.30 Diverticulosis of large intestine without perforation or abscess without bleeding; I51.7 Cardiomegaly; R91.8 Other nonspecific abnormal finding of lung field; Z85.42 Personal history of malignant neoplasm of other parts of uterus; Z90.79 Acquired absence of other genital organ(s)
CPT/HCPCS: 71250; 74176

== ENCOUNTER → 2024-02-29 | Outpatient (CLI) | payer MEDICARE ==
--- NOTE | 2024-02-29 13:01 | US ---
EXAMINATION TYPE: US thyroid st tissue head/neck DATE OF EXAM: 02/29/2024 COMPARISON: 08/05/2022 CLINICAL INDICATION: Female, 78 years old with history of L04.09 ACUTE LYMPHADENITIS; f/u TECHNIQUE: Grayscale and color Doppler imaging of the thyroid gland. FINDINGS: GLAND SIZE: Right Lobe: 4.7x1.8x1.4 cm Overall Parenchyma: heterogeneous Left Lobe: 6.2x2.1x1.6 cm Overall Parenchyma: heterogeneous Isthmus Thickness: 0.5 cm NODULES RIGHT: # of nodules measured on right: 0 LEFT: # of nodules measured on left: 0 ISTHMUS: # of nodules measured in the isthmus: 0 Bilateral neck scanned, no evidence of lymphadenopathy. right side subcentimeter nodule not visualized today IMPRESSION: Diffuse glandular heterogeneity noted. 2017 ACR TI-RADS LEVEL: *Highest TI-RADS level nodule reported [email or web address] [facility], , 02/29/2024 12:58 PM
== END | disposition home or self-care (01) ==
LOC: RADUSWWP 09:58
PROVIDERS: ATTEND Family Medicine
DX: L04.9 Acute lymphadenitis, unspecified (principal); K76.89 Other specified diseases of liver
CPT/HCPCS: 76536

== ENCOUNTER → 2024-04-17 | Outpatient (CLI) | payer MEDICARE ==
--- NOTE | 2024-04-17 10:40 | MM ---
Reason for Exam: Screening (asymptomatic). Last screening mammogram was performed 12 month(s) ago. Patient History: Menarche at age 15. Patient has no children. Left ovary removed at age 73. Right ovary removed at age 73. Hysterectomy at age 73. Postmenopausal. Other cancer. Risk Values: Pilar 5 year model risk: 2.0%. NCI Lifetime model risk: 4.0%. Prior Study Comparison: 03/06/2021 Bilateral Screening Mammogram, [facility]. 03/08/2022 Bilateral MG 3D screening mammo w/cad, [facility]. 04/06/2023 Bilateral MG 3D screening mammo w/cad, [facility]. Tissue Density: The breasts are heterogeneously dense, which may obscure small masses. Findings: Analyzed By CAD. There is no suspicious group of microcalcifications or new suspicious mass in either breast. Chronic nodularity outer margin left breast. Overall Assessment: Benign, BI-RAD 2 Management: Screening Mammogram of both breasts in 1 year. . Patient should continue monthly self-breast exams. A clinical breast exam by your physician is recommended on an annual basis. This exam should not preclude additional follow-up of suspicious palpable abnormalities. Note on Pilar scores and lifetime risk: 1. A Pilar score greater than 3% is considered moderate risk. If this is the case, consider specialist referral to assess eligibility for a risk reducing agent. 2. If overall lifetime risk for the development of breast cancer is 20% or higher, the patient may qualify for future screening with alternating mammogram and breast MRI. [facility], , 04/17/2024 10:37 AM. Electronically signed and approved by: Syed Parada M.D. Radiolog[facility]
== END | disposition home or self-care (01) ==
LOC: RADMAMWWP 10:13
PROVIDERS: ATTEND Obstetrics & Gynecology
DX: Z12.31 Encounter for screening mammogram for malignant neoplasm of breast (principal); Z08 Encounter for follow-up examination after completed treatment for malignant neoplasm; Z90.79 Acquired absence of other genital organ(s); Z85.42 Personal history of malignant neoplasm of other parts of uterus; Z78.0 Asymptomatic menopausal state; Z90.722 Acquired absence of ovaries, bilateral; R92.333 Mammographic heterogeneous density, bilateral breasts
CPT/HCPCS: 77063; 77067

== ENCOUNTER → 2024-08-13 | Outpatient (CLI) | payer MEDICARE ==
--- NOTE | 2024-08-13 11:26 | CT ---
EXAMINATION TYPE: CT abdomen pelvis wo con DATE OF EXAM: 08/13/2024 10:59 AM COMPARISON: 07/06/2023 CLINICAL INDICATION: Female, 78 years old with history of Z08 FU FROM TREATMENT Z90.79 ABSENSE OF ORG AN Z85.42 HX OF C; f/u endometrial ca. no contrast of any kind TECHNIQUE: Axial CT abdomen pelvis wo con;Sagittal and coronal reformats were created on a separate workstation. Contrast used: mL of , (none if empty) Oral contrast used: without Oral Contrast (none if empty) CT DLP: 948 mGycm, Automated exposure control for dose reduction was used. FINDINGS: LOWER CHEST: The heart is moderately enlarged for size. Mitral valve annular and aortic valve cusp pa tient's present. ABDOMEN LIVER: Unremarkable GALLBLADDER AND BILE DUCTS: Unremarkable. PANCREAS: Unremarkable. SPLEEN: Unremarkable. ADRENAL GLANDS: Unremarkable. KIDNEYS AND URETERS: No evidence of hydronephrosis or obstructing renal calculus. The ureters are unr emarkable. 30 mm right simple appearing renal cyst. No follow-up recommended. PELVIS BLADDER: No evidence for wall thickening or mass given limitations of exam. REPRODUCTIVE: Uterus is surgically absent. There is similar morphology to the surgical bed ABDOMEN & PELVIS STOMACH AND BOWEL: No evidence of bowel obstruction. Scattered colonic diverticula. PERITONEUM/RETROPERITONEUM: No evidence of pneumoperitoneum or free fluid. VASCULATURE: No evidence of aortic aneurysm. MUSCULOSKELETAL: No acute osseous abnormalities. Mild disc degeneration changes are present throughou t the thoracolumbar spine. Degeneration changes of the sacroiliac joints with osteophyte formation pr esent. LYMPH NODES: No gross evidence for lymphadenopathy. SOFT TISSUE/ABDOMINAL WALL: Unremarkable IMPRESSION: Postsurgical changes with hysterectomy. No enlarging lymph nodes identified. [facility], , 08/13/2024 11:24 AM
== END | disposition home or self-care (01) ==
LOC: RADCTMAIN 09:59
PROVIDERS: ATTEND Obstetrics & Gynecology
DX: Z08 Encounter for follow-up examination after completed treatment for malignant neoplasm (principal); Z90.79 Acquired absence of other genital organ(s); Z85.42 Personal history of malignant neoplasm of other parts of uterus; Z90.710 Acquired absence of both cervix and uterus
CPT/HCPCS: 74176